=== PATIENT | male | born 1955 | race African-American/Black ===

== ENCOUNTER → 2025-02-17 | Emergency (ER) | payer MEDICAID, OTHER ==
[~2025-02-17] VITALS: Ht 175.3 cm; Wt 61.0 kg
[~2025-02-17] MED LIST: ACET-2708 PO; ASPIRIN 325MG TABLET PO ONE; CABO40TA PO; CINA60 PO; LEVO-65 MT; MAGN400T39 PO; MULT-1318 PO; ONDA8TAB59 PO; PANT40TA51 PO; POTA-202 PO; TAMS-54 PO; [UNRECOGNIZED DRUG - CODE] PO
[2025-02-17 06:33] VITALS: BP 110/65; PULSE 89; RESP 14; TEMP 98.4; O2SAT 99
== END | disposition home or self-care (01) ==
LOC: ER 06:28
DX: R07.89 Other chest pain (principal)
CPT/HCPCS: 93005; 99281